=== PATIENT | female | born 1970 | race Caucasian/White ===

== ENCOUNTER 2018-03-13 11:36 | Inpatient (IN) | payer OTHER ==
[~2018-03-13] VITALS: Ht 157.5 cm; Wt 108.9 kg
[2018-03-13 12:00] VITALS: BP_SYST 133
[2018-03-13] MEDS ORDERED: SUCCINYLCHOLINE CHLORIDE 20 MG/ML(QUELICIN) IVP ONE (12:38)
[2018-03-13] MEDS ORDERED: ROCURONIUM BROMIDE 10 MG/ML (ZEMURON) IV ONE (12:38)
[2018-03-13] MEDS ORDERED: SEVOFLURANE 15 MIN GAS INH ONE (12:38)
[2018-03-13] MEDS ORDERED: MIDAZOLAM HCL 5 MG/ML VIAL (VERSED) IV ONE (12:38)
[2018-03-13] MEDS ORDERED: PROPOFOL 200MG/ 20ML VIAL (DIPRIVAN) IV ONE (12:38)
[2018-03-13] MEDS ORDERED: fentaNYL CITRATE 250 MCG/5 ML AMP IV ONE (12:38)
[2018-03-13] MEDS ORDERED: LR 1,000 ML IV.SOLN IV ONE (12:38)
[2018-03-13] MEDS ORDERED: NS IRRIG SOLN 1000 ML IR ONE (12:38)
[2018-03-13] MEDS ORDERED: ONDANSETRON HCL 4 MG/2 ML VIAL IVP ONE ×2 (12:38→13:30)
[2018-03-13 12:40] LABS: BILIRUBIN,URINE NEGATIVE (NEGATIVE); CLARITY/URINE CLEAR (CLEAR); COLOR,URINE YELLOW (YELLOW); GLUCOSE,URINE NEGATIVE (NEGATIVE); KETONES,URINE 2+ (NEGATIVE); LEUKOCYTE ESTERASE ,URINE TRACE (NEGATIVE); NITRITE, URINE NEGATIVE (NEGATIVE); PH,URINE 6.5 (5.0-8.0); PROTEIN URINE TRACE (NEGATIVE)
[2018-03-13 12:42] LABS: BLOOD, URINE TRACE (NEGATIVE)
[2018-03-13 12:51] LABS: BACTERIA,URINE FEW /HPF (None Seen)
[2018-03-13 13:17] LABS: BASOPHILS % (AUTO) 0.3 % (0.0-2.0); EOSINOPHILS # (AUTO) 0.1 K/uL (0.0-0.4); EOSINOPHILS % (AUTO) 1.4 % (0.0-4.0); HEMATOCRIT 35.3 % (36-48); HEMOGLOBIN 11.8 g/dL (12.0-16.0); LYMPHOCYTES # (AUTO) 1.6 K/uL (1.0-5.5); LYMPHOCYTES % (AUTO) 14.9 % (20.5-51.5); MEAN CORPUSCULAR HEMOGLOBIN 28 pg (27-31); MEAN CORPUSCULAR HGB CONC 33 % (32-36); MEAN CORPUSCULAR VOLUME 83 fL (79.0-98.0); MONOCYTES # (AUTO) 0.5 K/uL (0.0-1.0); MONOCYTES % (AUTO) 5.1 % (1.7-9.3); NEUTROPHILS # (AUTO) 8.3 K/uL (1.8-7.7); NEUTROPHILS % (AUTO) 78.3 % (40.0-70.0); PLATELET COUNT (AUTO) 364 K/uL (130-430); RED BLOOD CELL COUNT(AUTO) 4.25 MIL/uL (4.2-6.2); WHITE BLOOD COUNT (AUTO) 10.5 K/uL (4.8-10.8)
[2018-03-13 13:25] LABS: CALCIUM 8.8 mg/dL (8.4-11.0); CREATININE 0.48 mg/dL (0.55-1.30)
[2018-03-13 13:29] LABS: PROTHROMBIN TIME 10.2 SECS (9.5-12.5)
[2018-03-13 13:30] LABS: ALBUMIN 2.9 g/dL (3.4-4.8); TOTAL BILIRUBIN 0.4 mg/dL (0.0-1.0)
[2018-03-13] MEDS ORDERED: KCL 20 mEq in 100 mL (PREMIX) 100 ML IV ONE (13:30)
[2018-03-13] MEDS ORDERED: MORPHINE 2 MG/ML INJ. SYRINGE IVP ONE (13:30)
[2018-03-13 13:31] LABS: POTASSIUM 2.9 mmol/L (3.5-5.1)
[2018-03-13] MEDS ORDERED: MORPHINE 4 MG/ML INJ. SYRINGE IVP ONE (13:45)
[2018-03-13] MEDS ORDERED: LEVO150T PO (14:22)
[2018-03-13] MEDS ORDERED: metroNIDAZOLE 500 mg/NS 100 ML IV ONE (15:30)
[2018-03-13 16:24] VITALS: BP_SYST 114
[2018-03-13] MEDS ORDERED: POLYMYXIN 500,000/BACIT.10,000 UNITS in NS IRR 1 L IR ONE (16:39)
[2018-03-13] MEDS ORDERED: LR 1,000 ML IV SCH (18:23)
[2018-03-13] MEDS ORDERED: MORPHINE 4 MG/ML INJ. SYRINGE IVP PRN ×3 (18:30)
[2018-03-13] MEDS ORDERED: METOCLOPRAMIDE HCL 10 MG/2 ML VIAL IVP PRN (18:30)
[2018-03-13] MEDS: MORPHINE 4 MG/ML INJ. SYRINGE ONE ×2 (19:10→19:30)
[2018-03-13 19:49] VITALS: BP_SYST 141
[2018-03-13 19:50] VITALS: BP_SYST 141
[2018-03-13 21:34] LABS: HCG,QUAL RESULT NEGATIVE (NEGATIVE)
[2018-03-13] MEDS ORDERED: MORPHINE 2 MG/ML INJ. SYRINGE IVP PRN (22:30)
[2018-03-13] MEDS: MORPHINE 4 MG/ML INJ. SYRINGE IVP PRN (22:58)
[2018-03-13] MEDS: NACL 0.9% 1,000 ML IV SCH (22:58)
[2018-03-13] MEDS: ONDANSETRON HCL 4 MG/2 ML VIAL IVP PRN (23:00)
[2018-03-14] VITALS (7 sets, daily range): BP systolic 135–147
[2018-03-14] MEDS: MORPHINE 4 MG/ML INJ. SYRINGE IVP PRN ×5 (03:32→20:15)
[2018-03-14] MEDS: ONDANSETRON HCL 4 MG/2 ML VIAL IVP PRN ×3 (05:53→20:20)
[2018-03-14 06:34] LABS: ALBUMIN 2.3 g/dL (3.4-4.8); CALCIUM 8.1 mg/dL (8.4-11.0); CREATININE 0.48 mg/dL (0.55-1.30); POTASSIUM 3.2 mmol/L (3.5-5.1); TOTAL BILIRUBIN 0.5 mg/dL (0.0-1.0)
[2018-03-14 06:54] LABS: BASOPHILS % (AUTO) 0.2 % (0.0-2.0); EOSINOPHILS % (AUTO) 0.1 % (0.0-4.0); HEMATOCRIT 35.7 % (36-48); HEMOGLOBIN 11.8 g/dL (12.0-16.0); LYMPHOCYTES # (AUTO) 0.9 K/uL (1.0-5.5); LYMPHOCYTES % (AUTO) 7.6 % (20.5-51.5); MEAN CORPUSCULAR HEMOGLOBIN 28 pg (27-31); MEAN CORPUSCULAR HGB CONC 33 % (32-36); MEAN CORPUSCULAR VOLUME 83 fL (79.0-98.0); MONOCYTES # (AUTO) 0.8 K/uL (0.0-1.0); MONOCYTES % (AUTO) 6.8 % (1.7-9.3); NEUTROPHILS # (AUTO) 10.5 K/uL (1.8-7.7); NEUTROPHILS % (AUTO) 85.3 % (40.0-70.0); PLATELET COUNT (AUTO) 365 K/uL (130-430); WHITE BLOOD COUNT (AUTO) 12.2 K/uL (4.8-10.8)
[2018-03-14] MEDS: NACL 0.9% 1,000 ML IV SCH (08:38)
[2018-03-14] MEDS ORDERED: POTASSIUM CHLORIDE 40 MEQ, LIDOCAINE JECT 2% PF 100 MG 50 MG in NS 250 ML IV ONE (17:30)
[2018-03-14] MEDS ORDERED: POTASSIUM CHLORIDE 40 MEQ in D5W 250 ML IV SCH (18:00)
[2018-03-14] MEDS: KCL 20 mEq in NS 1000 mL 1,000 ML IV SCH (18:38)
[2018-03-15 00:02] VITALS: BP_SYST 139
[2018-03-15] MEDS: MORPHINE 4 MG/ML INJ. SYRINGE IVP PRN (00:29)
[2018-03-15] MEDS ORDERED: MAG-AL HYDROX/SIMETH 30 ML UDC PO ONE ×2 (01:15→21:45)
[2018-03-15] MEDS ORDERED: ZOLPIDEM TARTRATE 5 MG TABLET PO PRN (01:15)
[2018-03-15] MEDS: KCL 20 mEq in NS 1000 mL 1,000 ML IV SCH ×3 (03:25→15:20)
[2018-03-15 06:12] LABS: CALCIUM 8.1 mg/dL (8.4-11.0); CREATININE 0.43 mg/dL (0.55-1.30); POTASSIUM 3.5 mmol/L (3.5-5.1)
[2018-03-15 06:19] LABS: ALBUMIN 2.1 g/dL (3.4-4.8); TOTAL BILIRUBIN 0.3 mg/dL (0.0-1.0)
[2018-03-15 06:23] LABS: BASOPHILS % (AUTO) 0.3 % (0.0-2.0); EOSINOPHILS # (AUTO) 0.3 K/uL (0.0-0.4); EOSINOPHILS % (AUTO) 2.7 % (0.0-4.0); HEMATOCRIT 34.9 % (36-48); HEMOGLOBIN 11.2 g/dL (12.0-16.0); LYMPHOCYTES # (AUTO) 1.2 K/uL (1.0-5.5); LYMPHOCYTES % (AUTO) 11.7 % (20.5-51.5); MEAN CORPUSCULAR HEMOGLOBIN 27 pg (27-31); MEAN CORPUSCULAR HGB CONC 32 % (32-36); MEAN CORPUSCULAR VOLUME 83 fL (79.0-98.0); MONOCYTES # (AUTO) 0.8 K/uL (0.0-1.0); MONOCYTES % (AUTO) 7.4 % (1.7-9.3); NEUTROPHILS % (AUTO) 77.9 % (40.0-70.0); PLATELET COUNT (AUTO) 399 K/uL (130-430); RED BLOOD CELL COUNT(AUTO) 4.21 MIL/uL (4.2-6.2); WHITE BLOOD COUNT (AUTO) 10.3 K/uL (4.8-10.8)
[2018-03-15] MEDS ORDERED: LEVOTHYROXINE SODIUM 0.025 MG TABLET PO SCH (07:00)
[2018-03-15] MEDS ORDERED: LEVOTHYROXINE SODIUM 0.15 MG TABLET PO SCH (07:00)
[2018-03-15 08:00] VITALS: BP_SYST 143
[2018-03-15 12:29] VITALS: BP_SYST 141
[2018-03-15 16:05] VITALS: BP_SYST 136
[2018-03-15 19:05] VITALS: BP_SYST 139
[2018-03-15] MEDS ORDERED: MAG-AL HYDROX/SIMETH 30 ML UDC PO PRN (22:15)
[2018-03-16 00:27] VITALS: BP_SYST 137
[2018-03-16] MEDS: LEVOTHYROXINE SODIUM 0.15 MG TABLET PO SCH (06:01)
[2018-03-16] MEDS: LEVOTHYROXINE SODIUM 0.025 MG TABLET PO SCH (06:01)
[2018-03-16 06:37] LABS: ALBUMIN 2.1 g/dL (3.4-4.8); CALCIUM 8.2 mg/dL (8.4-11.0); CREATININE 0.43 mg/dL (0.55-1.30); POTASSIUM 3.2 mmol/L (3.5-5.1); TOTAL BILIRUBIN 0.3 mg/dL (0.0-1.0)
[2018-03-16] MEDS ORDERED: LEVOTHYROXINE SODIUM 0.15 MG TABLET PO SCH (07:00)
[2018-03-16 07:10] LABS: BASOPHILS % (AUTO) 0.2 % (0.0-2.0); EOSINOPHILS # (AUTO) 0.4 K/uL (0.0-0.4); EOSINOPHILS % (AUTO) 4.9 % (0.0-4.0); HEMATOCRIT 33.7 % (36-48); LYMPHOCYTES # (AUTO) 1.8 K/uL (1.0-5.5); LYMPHOCYTES % (AUTO) 19.8 % (20.5-51.5); MEAN CORPUSCULAR HEMOGLOBIN 27 pg (27-31); MEAN CORPUSCULAR HGB CONC 33 % (32-36); MEAN CORPUSCULAR VOLUME 83 fL (79.0-98.0); MONOCYTES # (AUTO) 0.5 K/uL (0.0-1.0); MONOCYTES % (AUTO) 5.7 % (1.7-9.3); NEUTROPHILS # (AUTO) 6.4 K/uL (1.8-7.7); NEUTROPHILS % (AUTO) 69.4 % (40.0-70.0); PLATELET COUNT (AUTO) 427 K/uL (130-430); RED BLOOD CELL COUNT(AUTO) 4.06 MIL/uL (4.2-6.2); RED CELL DISTRIBUTION WIDTH 14.9 % (9.0-15.0); WHITE BLOOD COUNT (AUTO) 9.1 K/uL (4.8-10.8)
[2018-03-16 08:00] VITALS: BP_SYST 131
[2018-03-16 12:06] VITALS: BP_SYST 140
[2018-03-16] MEDS: KCL 20 mEq in NS 1000 mL 1,000 ML IV SCH ×2 (14:42→17:58)
[2018-03-16 16:00] VITALS: BP_SYST 139
[2018-03-16 19:00] VITALS: BP_SYST 136
[2018-03-16] MEDS ORDERED: POTASSIUM CHLORIDE 20 MEQ TAB.PRT.SR PO ONE (19:45)
[2018-03-16 20:00] VITALS: BP_SYST 136
[2018-03-16] MEDS: ACETAMINOPHEN 325 MG TABLET PO PRN (23:21)
[2018-03-17 00:04] VITALS: BP_SYST 109
[2018-03-17] MEDS: LEVOTHYROXINE SODIUM 0.025 MG TABLET PO SCH (06:38)
[2018-03-17] MEDS: LEVOTHYROXINE SODIUM 0.15 MG TABLET PO SCH (06:39)
[2018-03-17] MEDS: KCL 20 mEq in NS 1000 mL 1,000 ML IV SCH ×2 (06:40→23:23)
[2018-03-17 06:58] LABS: CALCIUM 8.2 mg/dL (8.4-11.0); CREATININE 0.43 mg/dL (0.55-1.30); POTASSIUM 3.3 mmol/L (3.5-5.1)
[2018-03-17 07:56] VITALS: BP_SYST 143
[2018-03-17 12:25] VITALS: BP_SYST 137
[2018-03-17] MEDS ORDERED: POTASSIUM CHLORIDE 20 MEQ TAB.PRT.SR PO ONE (12:45)
[2018-03-17 16:40] VITALS: BP_SYST 139
[2018-03-17] MEDS: ACETAMINOPHEN 325 MG TABLET PO PRN (22:29)
[2018-03-17 23:28] VITALS: BP_SYST 128
[2018-03-18] MEDS: LEVOTHYROXINE SODIUM 0.15 MG TABLET PO SCH (06:25)
[2018-03-18] MEDS: LEVOTHYROXINE SODIUM 0.025 MG TABLET PO SCH (06:25)
[2018-03-18 06:39] LABS: CALCIUM 8.3 mg/dL (8.4-11.0); CREATININE 0.37 mg/dL (0.55-1.30); POTASSIUM 3.5 mmol/L (3.5-5.1)
[2018-03-18 07:50] VITALS: BP_SYST 127
[2018-03-18 10:23] VITALS: BP_SYST 122
[2018-03-18] MEDS: KCL 20 mEq in NS 1000 mL 1,000 ML IV SCH (10:32)
[2018-03-18 12:49] VITALS: BP_SYST 126
== END 2018-03-18 15:05 | disposition home or self-care (01) | DRG 341 ==
LOC: SED 11:36 → SMU 15:22 → STU 15:49 → SMU 03-14 18:45
PROVIDERS: ADMIT Internal Medicine; ATTEND Internal Medicine
PROC: 0YQ50ZZ Repair Right Inguinal Region, Open Approach (ICD-10-PCS; 2018-03-13)
PROC: 0UT00ZZ Resection of Right Ovary, Open Approach (ICD-10-PCS; 2018-03-13)
PROC: 0DTJ0ZZ Resection of Appendix, Open Approach (ICD-10-PCS; principal; 2018-03-13 14:30)
DX: K43.6 Other and unspecified ventral hernia with obstruction, without gangrene (principal); E43 Unspecified severe protein-calorie malnutrition; E66.01 Morbid (severe) obesity due to excess calories; K40.30 Unilateral inguinal hernia, with obstruction, without gangrene, not specified as recurrent; Z68.41 Body mass index [BMI] 40.0-44.9, adult; K35.80 Unspecified acute appendicitis; K76.0 Fatty (change of) liver, not elsewhere classified; K21.9 Gastro-esophageal reflux disease without esophagitis; N83.201 Unspecified ovarian cyst, right side; E03.9 Hypothyroidism, unspecified; E87.6 Hypokalemia; E66.9 Obesity, unspecified; N85.2 Hypertrophy of uterus; Z82.49 Family history of ischemic heart disease and other diseases of the circulatory system
CPT/HCPCS: 36415; 71045; 80048; 80053; 81000-TC; 83605; 83690-TC; 83735-TC; 84703; 85025; 85610-TC; 85730-TC; 87040-TC; 87070-TC; 87075-TC; 87081; 87086; 87186-TC; 88302; 88304; 88305; 93005; 94010; 96365; 96366; 96375; 99285; J0330; J1956; J2250; J2270; J2405; J2704; J3010; J3480; J3490; J7030; J7060; J7120

== ENCOUNTER 2020-01-23 15:46 | Inpatient (IN) | payer OTHER ==
[~2020-01-23] VITALS: Ht 157.5 cm; Wt 103.4 kg
[~2020-01-23 15:46] MED LIST: LEVO150T PO
[2020-01-23 16:06] VITALS: BP_SYST 137
[2020-01-23] MEDS ORDERED: PIPERACILLIN/TAZO 3.38 GM in NS 50 ML IV ONE (16:45)
[2020-01-23 17:04] LABS: BASOPHILS % (AUTO) 0.2 % (0.0-2.0); EOSINOPHILS # (AUTO) 0.2 K/uL (0.0-0.4); EOSINOPHILS % (AUTO) 1.7 % (0.0-4.0); HEMOGLOBIN 11.6 g/dL (12.0-16.0); LYMPHOCYTES # (AUTO) 1.4 K/uL (1.0-5.5); LYMPHOCYTES % (AUTO) 12.2 % (20.5-51.5); MEAN CORPUSCULAR HEMOGLOBIN 29 pg (27-31); MEAN CORPUSCULAR HGB CONC 33 % (32-36); MEAN CORPUSCULAR VOLUME 88 fL (79.0-98.0); MONOCYTES # (AUTO) 0.6 K/uL (0.0-1.0); MONOCYTES % (AUTO) 5.6 % (1.7-9.3); NEUTROPHILS # (AUTO) 9.2 K/uL (1.8-7.7); NEUTROPHILS % (AUTO) 80.3 % (40.0-70.0); PLATELET COUNT (AUTO) 421 K/uL (130-430); WHITE BLOOD COUNT (AUTO) 11.5 K/uL (4.8-10.8)
[2020-01-23 17:10] LABS: PROTHROMBIN TIME 9.7 SECS (9.5-12.5)
[2020-01-23 17:11] LABS: CALCIUM 8.2 mg/dL (8.4-11.0); CREATININE 0.71 mg/dL (0.55-1.30); POTASSIUM 3.5 mmol/L (3.5-5.1)
[2020-01-23 17:25] LABS: ALBUMIN 2.7 g/dL (3.4-4.8); TOTAL BILIRUBIN 0.3 mg/dL (0.0-1.0)
[2020-01-23] MEDS ORDERED: CEFAZOLIN 1 GM IVPB PREMIX 50 ML IV ONE (17:30)
[2020-01-23] MEDS ORDERED: VANCOMYCIN HCL 1,000 MG in NS 250 ML IV ONE (17:30)
[2020-01-23] MEDS ORDERED: PIPERACILLIN/TAZOBACTAM 3.375 GM/VIAL (ZOSYN) IV ONE (18:33)
[2020-01-23 19:25] LABS: BILIRUBIN,URINE NEGATIVE (NEGATIVE); BLOOD, URINE 2+ (NEGATIVE); CLARITY/URINE CLEAR (CLEAR); COLOR,URINE YELLOW (YELLOW); GLUCOSE,URINE NEGATIVE (NEGATIVE); KETONES,URINE NEGATIVE (NEGATIVE); LEUKOCYTE ESTERASE ,URINE 1+ (NEGATIVE); NITRITE, URINE NEGATIVE (NEGATIVE); PROTEIN URINE NEGATIVE (NEGATIVE); UROBILINOGEN,URINE 0.2 (0.2-1.0)
[2020-01-23] MEDS ORDERED: VANCOMYCIN HCL 1000 MG/VIAL IV ONE (19:31)
[2020-01-23 19:46] LABS: BACTERIA,URINE FEW /HPF (None Seen); RBC,URINE 0-3 /HPF (0-3)
[2020-01-23] MEDS ORDERED: CIPR-211 PO (19:51)
[2020-01-23] MEDS ORDERED: LEVO150T PO (19:51)
[2020-01-23 20:46] VITALS: BP_SYST 141
[2020-01-23] MEDS ORDERED: FLU VACC QS2019-20 36MOS UP/PF 60 MCG/0.5 ML SYRINGE I.M. PRN (21:00)
[2020-01-23] MEDS ORDERED: ZOLPIDEM TARTRATE 5 MG TABLET PO PRN (22:15)
[2020-01-23] MEDS ORDERED: HYDROcodone/ACETAMIN 5-325 MG TAB (NORCO/ VICODIN) PO PRN (22:15)
[2020-01-23] MEDS ORDERED: ACETAMINOPHEN 325 MG TABLET PO PRN (22:15)
[2020-01-24] MEDS: LEVOFLOXACIN 500 MG/D5W 100 ML IV SCH ×2 (00:28→21:52)
[2020-01-24 00:29] VITALS: BP_SYST 115
[2020-01-24] MEDS ORDERED: LEVOFLOXACIN 500 MG/D5W 100 ML IV ONE (00:38)
[2020-01-24] MEDS: LEVOTHYROXINE SODIUM 0.15 MG TABLET PO SCH (06:15)
[2020-01-24 06:26] LABS: ALBUMIN 2.3 g/dL (3.4-4.8); CALCIUM 7.9 mg/dL (8.4-11.0); CREATININE 0.51 mg/dL (0.55-1.30); POTASSIUM 3.5 mmol/L (3.5-5.1); TOTAL BILIRUBIN 0.4 mg/dL (0.0-1.0)
[2020-01-24 06:53] LABS: BASOPHILS % (AUTO) 0.2 % (0.0-2.0); EOSINOPHILS # (AUTO) 0.3 K/uL (0.0-0.4); EOSINOPHILS % (AUTO) 2.8 % (0.0-4.0); HEMATOCRIT 33.1 % (36-48); HEMOGLOBIN 11.1 g/dL (12.0-16.0); LYMPHOCYTES # (AUTO) 1.7 K/uL (1.0-5.5); LYMPHOCYTES % (AUTO) 15.4 % (20.5-51.5); MEAN CORPUSCULAR HEMOGLOBIN 29 pg (27-31); MEAN CORPUSCULAR HGB CONC 33 % (32-36); MEAN CORPUSCULAR VOLUME 87 fL (79.0-98.0); MONOCYTES # (AUTO) 0.7 K/uL (0.0-1.0); MONOCYTES % (AUTO) 6.1 % (1.7-9.3); NEUTROPHILS # (AUTO) 8.4 K/uL (1.8-7.7); NEUTROPHILS % (AUTO) 75.5 % (40.0-70.0); PLATELET COUNT (AUTO) 369 K/uL (130-430); RED BLOOD CELL COUNT(AUTO) 3.79 MIL/uL (4.2-6.2); RED CELL DISTRIBUTION WIDTH 14.7 % (9.0-15.0); WHITE BLOOD COUNT (AUTO) 11.1 K/uL (4.8-10.8)
[2020-01-24 08:00] VITALS: BP_SYST 113
[2020-01-24] MEDS ORDERED: LINEZOLID 300 ML IV ONE (13:30)
[2020-01-24 13:51] VITALS: BP_SYST 123
[2020-01-24 16:51] VITALS: BP_SYST 121
[2020-01-24 20:14] VITALS: BP_SYST 116
[2020-01-24 23:53] VITALS: BP_SYST 124
[2020-01-25] MEDS: LINEZOLID 300 ML IV SCH ×3 (00:19→21:33)
[2020-01-25] MEDS: LEVOTHYROXINE SODIUM 0.15 MG TABLET PO SCH (06:11)
[2020-01-25 08:00] VITALS: BP_SYST 108
[2020-01-25 13:13] VITALS: BP_SYST 103
[2020-01-25 17:05] VITALS: BP_SYST 126
[2020-01-25 20:00] VITALS: BP_SYST 136
[2020-01-25] MEDS: LEVOFLOXACIN 500 MG/D5W 100 ML IV SCH (21:31)
[2020-01-26 00:18] VITALS: BP_SYST 103
[2020-01-26] MEDS: LEVOTHYROXINE SODIUM 0.15 MG TABLET PO SCH (05:51)
[2020-01-26 07:44] VITALS: BP_SYST 131
[2020-01-26 08:00] VITALS: BP_SYST 131
[2020-01-26] MEDS: LINEZOLID 300 ML IV SCH (12:03)
[2020-01-26 12:15] VITALS: BP_SYST 123
[2020-01-26 16:21] VITALS: BP_SYST 123
[2020-01-26 17:55] VITALS: BP_SYST 123
[2020-01-26] MEDS ORDERED: LINE600T6 PO (18:01)
== END 2020-01-26 18:35 | disposition home or self-care (01) | DRG 862 ==
LOC: SED 15:46 → SMU 18:42
PROVIDERS: ADMIT Internal Medicine; ATTEND Internal Medicine
DX: T81.41XA Infection following a procedure, superficial incisional surgical site, initial encounter (principal); E43 Unspecified severe protein-calorie malnutrition; L03.311 Cellulitis of abdominal wall; Z68.41 Body mass index [BMI] 40.0-44.9, adult; E03.9 Hypothyroidism, unspecified; E66.01 Morbid (severe) obesity due to excess calories; B95.61 Methicillin susceptible Staphylococcus aureus infection as the cause of diseases classified elsewhere; Y83.8 Other surgical procedures as the cause of abnormal reaction of the patient, or of later complication, without mention of misadventure at the time of the procedure; Z79.899 Other long term (current) drug therapy; Z90.49 Acquired absence of other specified parts of digestive tract; Z98.891 History of uterine scar from previous surgery; Y92.89 Other specified places as the place of occurrence of the external cause
CPT/HCPCS: 36415; 71045; 76700-TC; 80053; 81000-TC; 83605; 83690-TC; 85025; 85610-TC; 87040-TC; 87070-TC; 87075-TC; 87081; 87086; 87186-TC; 93005; 96365; 96366; 96375; 99285; J0690; J1956; J2020; J2543; J3370